=== PATIENT | male | born 1970 | race Caucasian/White ===

== ENCOUNTER 2018-08-23 18:49 | Emergency (ER) | payer BC, OTHER ==
[2018-08-23 18:56] VITALS: RESP 18
[2018-08-23] MEDS ORDERED: HYDROcodone/APAP 5-325MG 1 EACH TAB PO STA (19:22)
[2018-08-23] MEDS ORDERED: LIDOCAINE 1% INJ 10MG/ML (20 ML MDV) SQ STA (19:22)
[2018-08-23] MEDS ORDERED: ACETAMINOPHEN TAB 325 MG TAB PO STA (19:23)
[2018-08-23] MEDS ORDERED: DIPH,PERTUS(ACELL)TETVAC-LF 0.5 ML VIAL IM ONE (19:26)
--- NOTE | 2018-08-23 19:58 | XR ---
EXAMINATION TYPE: XR hand complete RT DATE OF EXAM: 08/23/2018 COMPARISON: 12/28/2014 HISTORY: Laceration TECHNIQUE: 3 views FINDINGS: There is deformity of the fifth metacarpal related to old healed fracture. I see no acute f racture nor dislocation. There are no erosions. There is no sign of radiopaque foreign body. IMPRESSION: Old healed fifth metacarpal fracture. No change compared to old exam.
--- NOTE | 2018-08-23 21:15 | ED ---
Wound/Laceration HPI - General Chief Complaint: Wound/Laceration Stated Complaint: Wrist Lac Source: patient, RN notes reviewed, old records reviewed Mode of arrival: ambulatory Limitations: no limitations - History of Present Illness Initial Comments: 48-year-old male patient no pertinent past medical history presents in ED after he sustained a laceration to the medial aspect of his right hand. Patient was installing a head about a stove when he pulled his hand out and cut his hand on an exposed piece of metal. The stove was new. Patient suffered an approximately 7 cm laceration. Patient does not know date of last tetanus updated. Patient has full active range of motion hand. Hemostasis achieved via compression. Patient denies any other complaints. Systemic: Pt denies fatigue, myalgia, fever/chills, rash. Pt denies weakness, night sweats, weight loss. Neuro: Pt denies headache, visual disturbances, syncope or pre-syncope. HEENT: Pt denies ocular discharge or irritation, otalgia, rhinorrhea, pharyngitis or notable lymphadenopathy. Cardiopulmonary: Pt denies chest pain, SOB, heart palpitations, dyspnea on exertion. Abdominal/GI: Pt denies abdominal pain, n/v/d. : Pt denies dysuria, burning w/ urination, frequency/urgency. Denies new onset urinary or bowel incontinence. MSK: Pt denies myalgia, loss of strength or function in extremities. Neuro: Pt denies new onset weakness, paresthesias. - Related Data Previous Rx's Medication Instructions Recorded Amoxicillin 500 mg PO Q12H 3 Days #6 day 08/23/18 Allergies Allergy/AdvReac Type Severity Reaction Status Date / Time codeine Allergy Hallucinati Verified 08/23/18 18:56 ons Review of Systems ROS Statement: Those systems with pertinent positive or pertinent negative responses have been documented in the HPI. ROS Other: All systems not noted in ROS Statement are negative. Past Medical History Past Medical History: No Reported History Past Surgical History: No Surgical Hx Reported Past Psychological History: No Psychological Hx Reported Smoking Status: Current every day smoker Past Alcohol Use History: None Reported, Unable to Obtain Past Drug Use History: None Reported, Marijuana General Exam - General Exam Comments Initial Comments: Constitutional: NAD, AOX3, Pt has pleasant affect. HEENT: NC/AT, trachea midline, neck supple, no lymphadenopathy. Posterior pharynx non erythematous, without exudates. External ears appear normal, without discharge. Mucous membranes moist. Eyes PERRLA, EOM intact. There is no scleral icterus. No pallor noted. Cardiopulmonary: RRR, no murmurs, rubs or gallops, no JVD noted. Lungs CTAB in anterior and posterior bryant. No peripheral edema. Abdominal exam: Abdomen soft and non-distended. Abdomen non-tender to palpation in all 4 quadrants. Bowel sounds active in LLQ. No hepatosplenomegaly. No ecchymosis Neuro: CN II-XII grossly intact. No nuchal rigidity. MSK: Approximately 7 cm laceration extending from medial aspect of mid right hand down to the distal ulna. Wound explored, vigorously irrigated, no tendon or bony involvement, no foreign bodies noted. Patient has full active range of motion of right hand. Patient neurovascularly intact. Radial and ulnar pulse + 2 bilaterally. Patient sensation intact. Patient to rest intact after suture placement. No posterior calf tenderness bilaterally, homans sign negative bilaterally. Posterior tibialis pulse +2 bilaterally. Sensation intact in upper and lower extremities. Full active ROM in upper and lower extremities, 5/5 strength. Limitations: no limitations Course Vital Signs 08/23/18 18:54 Temperature 98 F Pulse Rate 78 Respiratory 18 Rate Blood Pressure 123/75 O2 Sat by Pulse 98 Oximetry Procedures - Laceration Laceration #1 Consent Obtained: verbal consent Time Out Performed: Yes Indication: laceration Site: hand Size (cm): 7 Description: linear Depth: simple, single layer Anesthetic Used: lidocaine 1% Anesthesia Technique: local infiltration Amount (mls): 6 Pre-repair: wound explored, irrigated extensively, deep structures intact Type of Sutures: nylon Size of Sutures: 5-0 Number of Sutures: 11 Technique: simple, interrupted Patient Tolerated Procedure: well, no complications Medical Decision Making - Medical Decision Making 48-year-old male patient no pertinent past medical history presents in ED after he sustained a laceration to the medial aspect of his right hand. Patient was installing a head about a stove when he pulled his hand out and cut his hand on an exposed piece of metal. Physical exam revealed an approximate 7 cm laceration extending from medial aspect of mid right hand onto distal ulna. Wound was irrigated, explored, no tendon or bony involvement. No foreign bodies noted. Patient is full active range of motion hand. Neurovascularly intact. Plain film did not display any acute osseous abnormality, foreign body. Patient tetanus updated. Wound closed with 11 simple interrupted sutures. Patient prescribed 3 days of amoxicillin. Patient follow up PCP in 1- 2 days. Patient to return to ED if any signs or symptoms develop. Patient educated extensively about wound care, suture care, signs symptoms of infection. Tetanus updated. Case discussed with Dr. Reich. Disposition Clinical Impression: Laceration Disposition: HOME SELF-CARE Condition: Good Instructions: Laceration (ED) Additional Instructions: Patient to adhere to previously discussed treatment plan and will take medication(s) as directed. Patient to follow up with PCP in 1-2 days. Patient to return to ED if symptoms do not improve. Prescriptions: Amoxicillin 500 mg PO Q12H 3 Days #6 day Is patient prescribed a controlled substance at d/c from ED?: No Referrals: Elise Chao DO [Primary Care Provider] - 1-2 days Time of Disposition: 21:15
[2018-08-23 21:46] VITALS: BP 118/57; PULSE 57; TEMP 98.2
== END 2018-08-23 21:45 | disposition home or self-care (01) ==
LOC: EC 18:49
DX: S61.411A Laceration without foreign body of right hand, initial encounter (principal); Z53.8 Procedure and treatment not carried out for other reasons; Z23 Encounter for immunization; F17.200 Nicotine dependence, unspecified, uncomplicated; Z88.5 Allergy status to narcotic agent; W26.8XXA Contact with other sharp object(s), not elsewhere classified, initial encounter; Y92.009 Unspecified place in unspecified non-institutional (private) residence as the place of occurrence of the external cause
CPT/HCPCS: 73130; 90715; 99284; 12002; 90471; J2001